=== PATIENT | female | born 1950 | race Two or more races ===

== ENCOUNTER 2020-11-24 06:21 | Emergency (ER) | payer OTHER ==
[~2020-11-24] VITALS: Ht 170.2 cm; Wt 86.2 kg
[2020-11-24] MEDS ORDERED: ONDANSETRON ODT4 MG PO (15:50)
[2020-11-24] MEDS ORDERED: IVERMECTIN3 MG PO (15:50)
[2020-11-24] MEDS ORDERED: PEPCID AC20 MG PO (15:50)
[2020-11-24] MEDS ORDERED: PROMETH-CODEIN 65 ML PO (16:19)
== END 2020-11-24 16:21 ==
LOC: ER 06:21
DX: R05 Cough (principal)

== ENCOUNTER 2020-11-26 13:30 | Inpatient (IN) | payer OTHER ==
[~2020-11-26] VITALS: Ht 162.6 cm; Wt 88.5 kg
[~2020-11-26 13:30] MED LIST: IVERMECTIN3 MG PO; ONDANSETRON ODT4 MG PO; PEPCID AC20 MG PO; PROMETH-CODEIN 65 ML PO
--- NOTE | 2020-11-26 13:56 | NUR ---
SE LLAMA PACIENTE Y NO HAY CONTESTACION
--- NOTE | 2020-11-26 14:10 | NUR ---
SE RECIBE PACIENTE FEMENINA DE 70 ANOS DE EDAD DESPIERTA Y ALERTA CON QUEJA PRINCIPAL DE TOS SECA Y DIFICULTAD RESPIRATORIA. PACIENTE REFIERE SER COVID 19 POSITIVA DESDE EL LUNES
--- NOTE | 2020-11-26 16:24 | NUR ---
PTE FEMENINA ALERTA Y ORIENTADA ES EVALUADA POR . SE ORIENTA SOBRE ORDENES DE [place] REFIERE COMPRENDER. SE EXTREAN MUESTRAS DE LABORATORIO, BAJO MEDIDAS ASEPTICAS. SE REALIZA EKG Y SE PRESENTA A MD. SE NOTIFICA A [facility] RESPIRATOR[facility] PARA ABGS.
== END 2020-12-01 18:45 | disposition home or self-care (01) | DRG 177 ==
LOC: ER 13:30 → MEDJ 11-27 00:40
PROVIDERS: ADMIT Internal Medicine; ATTEND Internal Medicine
PROC: XW033E5 Introduction of Remdesivir Anti-infective into Peripheral Vein, Percutaneous Approach, New Technology Group 5 (ICD-10-PCS; principal; 2020-11-27)
PROC: 8E0ZXY6 Isolation (ICD-10-PCS; 2020-11-27)
PROC: 3E0F7SF Introduction of Other Gas into Respiratory Tract, Via Natural or Artificial Opening (ICD-10-PCS; 2020-11-27)
PROC: 4A12X4Z Monitoring of Cardiac Electrical Activity, External Approach (ICD-10-PCS; 2020-11-27)
DX: U07.1 COVID-19 (principal); J12.82 Pneumonia due to coronavirus disease 2019; J22 Unspecified acute lower respiratory infection; R06.02 Shortness of breath

== ENCOUNTER 2024-09-26 23:39 | Emergency (ER) | payer OTHER ==
[~2024-09-26] VITALS: Ht 165.1 cm; Wt 79.4 kg
[2024-09-27] MEDS ORDERED: 0.9 % SODIUM CHLORIDE 1,000 ML IV STA (01:44)
[2024-09-27] MEDS ORDERED: KETOROLAC TROMETHAMINE 30 MG VIAL IV STA (01:45)
[2024-09-27] MEDS ORDERED: ONDANSETRON HCL 2 MG/ML VIAL IV STA (01:45)
[2024-09-27] MEDS ORDERED: HYDROCODONE/CHLORPHEN P-STIREX 5 ML ML PO STA (01:46)
[2024-09-27] MEDS ORDERED: KETOROLAC TROMETHAMINE 30 MG VIAL ONE (01:48)
[2024-09-27] MEDS ORDERED: ONDANSETRON HCL 2 MG/ML VIAL ONE (01:48)
[2024-09-27 02:21] LABS: BASO % 1.2 % (0.1-1.2); EOS # 0.01 (0.04-0.54); EOS % 0.2 % (0.7-7.0); HEMATOCRIT 33.5 % (34.1-44.9); HEMOGLOBIN 11.5 g/dL (11.2-15.7); LYMPH # 0.42 (1.18-3.74); LYMPH % 7.3 % (19.3-53.1); MEAN CORPUSCULAR HEMOGLOBIN 29.4 pg (25.6-32.2); MONO # 0.44 (0.24-0.82); MONO % 7.6 % (4.7-12.5); NEUT # 4.83 (1.56-6.13); NEUT % 83.5 % (34.0-71.1); PLATELET COUNT 490 K/uL (163-369); RED BLOOD COUNT 3.91 M/uL (3.93-5.22); RED CELL DISTRIBUTION WIDTH 14.2 % (11.6-14.4)
[2024-09-27 02:43] LABS: COVID-19 AG NEGATIVE (NEGATIVE)
[2024-09-27 02:59] LABS: INFLUENZA A AG POSITIVE (NEGATIVE)
== END 2024-09-27 05:13 | disposition home or self-care (01) ==
LOC: ER
DX: J10.1 Influenza due to other identified influenza virus with other respiratory manifestations (principal); Z20.822 Contact with and (suspected) exposure to COVID-19